=== PATIENT | male | born 1945 | race Caucasian/White ===

== ENCOUNTER → 2019-03-24 14:36 | Outpatient (CLI) | payer OTHER, SELFPAY ==
--- NOTE | 2019-03-24 14:44 | ECHOD_ITS ---
Reason For Study: CAD.ASHD Procedure This was a 2D Doppler, Color Flow transthoracic echocardiogram. The study was technically difficult. Exam performed in department. Left Ventricle Normal LV size. Left ventricular systolic function is normal. The estimated ejection fraction is 65 %. No evidence for diastolic dysfunction. No regional wall motion abnormalities noted. Right Ventricle Normal RV size. Normal systolic function. Atria Normal left atrium. Normal right atrium. No doppler evidence for ASD. Mitral Valve There is no mitral annular calcification. Normal mitral valve. Trivial mitral valve insufficiency. Tricuspid Valve Normal tricuspid valve. Trivial tricuspid valve insufficiency. Right ventricular systolic pressure estimated to be 31 mmHg. Aortic Valve Trisinus/trileaflet aortic valve. Normal aortic valve. Trivial aortic valve insufficiency. Pulmonic Valve The pulmonic valve is not well visualized. Great Vessels Borderline to mildly enlarged aortic root. Pericardium/Pleural No pericardial effusion. MMode/2D Measurements & Calculations LVIDd: 4.4 cm IVSd: 1.0 cm LVOT diam: 2.3 cm LVIDs: 3.1 cm LVPWd: 1.1 cm LVOT area: 4.2 cm2 RVDd: 3.7 cm FS: 29.3 % Ao root diam: 3.9 cm LAV(MOD-bp): 42.9 ml LA A4 area: 16.3 cm2 LAV(MOD-bp) Indexed: 23.3 ml/m2 LAV(MOD-sp2): 40.9 ml LAV(MOD-sp4): 40.6 ml LA dimension(2D): 3.1 cm RA A4 area: 17.0 cm2 Time Measurements MV dec time: 0.21 sec Doppler Measurements & Calculations MV E max frederick: 52.6 cm/sec Lat Peak E' Frederick: 10.0 cm/sec Med Peak E' Frederick: 8.6 cm/sec MV A max frederick: 73.8 cm/sec E/E' lat: 5.3 E/E' med: 6.1 MV E/A: 0.71 Ao V2 max: 119.1 cm/sec LV V1 max: 97.7 cm/sec PA V2 max: 81.7 cm/sec Ao max P.7 mmHg LV V1 max P.8 mmHg ALLEN(V,D): 3.4 cm2 TR max frederick: 262.5 cm/sec TR max P.6 mmHg Interpretation Summary The study was technically difficult. Left ventricular systolic function is normal. The estimated ejection fraction is 65 %. Trivial mitral valve insufficiency. Trivial tricuspid valve insufficiency. Trivial aortic valve insufficiency. Borderline to mildly enlarged aortic root. Right ventricular systolic pressure estimated to be 31 mmHg. No evidence for diastolic dysfunction. Ordering Physician: SHELBY ZAMUDIO Referring Physician: SHELBY ZAMUDIO Performed By: Jossy Parker RDCS, RVT
== END ==
PROVIDERS: Family Provider Nurse Practitioner; PCP Nurse Practitioner; Referring Provider Orthopaedic Surgery; Visit Provider Orthopaedic Surgery
DX: I25.10 Atherosclerotic heart disease of native coronary artery without angina pectoris (principal)
CPT/HCPCS: 93306